=== PATIENT | female | born 1950 | race Two or more races ===

== ENCOUNTER 2016-11-16 08:10 | Day surgery (SDC) | payer OTHER ==
[~2016-11-16] VITALS: Ht 152.4 cm; Wt 85.6 kg
[~2016-11-16 08:10] MED LIST: NAPR-260 PO; TRAM50TA2 PO
[2016-11-16 09:20] VITALS: Ht 152.4 cm; Wt 85.6 kg
[2016-11-16] MEDS ORDERED: ASPI81TA3 PO (09:29)
[2016-11-16] MEDS ORDERED: INDERAL (09:29)
[2016-11-16] MEDS ORDERED: GLIP5TAB13 PO (09:29)
[2016-11-16] MEDS ORDERED: FENTAnyl 50 MCG/ML VIAL ONE (09:32)
[2016-11-16] MEDS ORDERED: LIDOCAINE 100 MG SYRINGE ONE (09:32)
[2016-11-16] MEDS ORDERED: PROPOFOL 0 ML ONE (09:32)
[2016-11-16 09:45] VITALS: BP 136/77; PULSE 65; RESP 12
[2016-11-16] MEDS ORDERED: PROPOFOL 20 ML ONE (10:20)
[2016-11-16 10:40] VITALS: BP 113/60; PULSE 62; RESP 14
--- NOTE | 2016-11-16 10:53 | GILP ---
DATE OF PROCEDURE: 11/16/2016 NAME OF PROCEDURES: 1. Esophagogastroduodenoscopy and biopsy. 2. Colonoscopy. SURGEON: Amarilis Diaz MD PREOPERATIVE DIAGNOSES: 1. Chronic heartburn. 2. Screening colonoscopy. POSTOPERATIVE DIAGNOSES 1. Reflux esophagitis with erosions. 2. Gastritis with erosions. 3. Gastric mucosal biopsies were taken for H. pylori test and it was positive. 4. Colonoscopy all the way to the cecum. 5. Internal hemorrhoids. 6. No colon neoplasm was identified. INDICATION FOR THE PROCEDURE: Ms. Cielo Moss is a 66-year-old female patient who had chronic heartbu rn, not responding to therapy. She also needed screening colonoscopy. The procedures and possible complications were well explained to the patient. The patient understoo d and consented to the procedure. DESCRIPTION OF PROCEDURE: Under the influence of anesthesia, the gastroscope was carefully introduc ed into the esophagus and under direct vision, it was advanced to the stomach and through the pyloru s into the duodenal bulb and descending duodenum. FINDINGS: ESOPHAGUS: The patient had reflux esophagitis with erosions at the lower end. STOMACH: She had gastritis with erosions. Gastric mucosal biopsies were taken for H. pylori test a nd it was positive. DUODENUM: Normal. The colonoscope was carefully introduced in the rectum and under direct vision, it was advanced all the way to the cecum. FINDINGS: The patient had internal hemorrhoids. No colon neoplasm was identified. She tolerated the procedures very well and there was no complication from the procedures. At the en d of the procedures, she was awake with stable vital signs and she was discharged home to the care o f her family. IMPRESSION: Please see postoperative diagnoses. PLAN: 1. Omeprazole 40 mg p.o. q.a.m. 2. Zantac 300 mg p.o. b.i.d. for 14 days. 3. Doxycycline 100 mg p.o. b.i.d. for 14 days. 4. Flagyl 500 mg p.o. b.i.d. for 14 days. 5. Pepto-Bismol 2 tablets p.o. q.i.d. for 14 days. 6. Next screening colonoscopy in 10 years. Dictated By: AMARILIS OAKLEY/TEOFILO Conf#: [id number] DID#: [id number]
== END 2016-11-16 13:03 | disposition home or self-care (01) ==
LOC: GIL 08:10
PROVIDERS: ATTEND Internal Medicine Gastroenterology
DX: Z12.11 Encounter for screening for malignant neoplasm of colon (principal); K21.0 Gastro-esophageal reflux disease with esophagitis; K29.60 Other gastritis without bleeding; K64.8 Other hemorrhoids; B96.81 Helicobacter pylori [H. pylori] as the cause of diseases classified elsewhere; I10 Essential (primary) hypertension; E11.9 Type 2 diabetes mellitus without complications; E66.9 Obesity, unspecified; Z68.36 Body mass index [BMI] 36.0-36.9, adult
CPT/HCPCS: 43239; 45378; 82962; 87081; J2001; J3010; Z7610